=== PATIENT | female | born 1990 | race Caucasian/White ===

== ENCOUNTER 2019-06-01 21:57 | Emergency (ER) | payer BC ==
[~2019-06-01] VITALS: Ht 154.9 cm; Wt 54.9 kg
[2019-06-01 22:13] VITALS: Ht 154.9 cm; Wt 54.9 kg
[2019-06-02 00:56] VITALS: BP 122/82
== END 2019-06-02 00:56 | disposition home or self-care (01) ==
LOC: ED 21:57
DX: S00.412A Abrasion of left ear, initial encounter (principal); S50.812A Abrasion of left forearm, initial encounter; M79.645 Pain in left finger(s); W55.03XA Scratched by cat, initial encounter; Y93.89 Activity, other specified; Y92.89 Other specified places as the place of occurrence of the external cause; Y99.8 Other external cause status